=== PATIENT | male | born 1945 | race Caucasian/White ===

== ENCOUNTER → 2019-08-13 10:52 | Outpatient (CLI) | payer BC, SELFPAY ==
--- NOTE | ~2019-08-13 | XR_ITS ---
EXAMINATION: XR chest 2V EXAM DATE: 08/13/2019 11:12 INDICATION: Pleurodynia. TECHNIQUE: Frontal and lateral projections of the chest obtained and reviewed. Comparison is made to prior examination from 11/26/2018. FINDINGS: There is been interval insertion of CT injectable right-sided portacatheter overlying expe cted position. Otherwise, no interval change. Some linear basilar scarring. No confluent consolidatio n, pneumothorax or pleural effusion suspected. Cardiomediastinal silhouette is normal. Patient has di ffuse idiopathic skeletal hyperostosis (DISH). IMPRESSION: No acute cardiopulmonary findings. Reviewed, dictated and finalized at location B. [facility]
== END ==
PROVIDERS: PCP Nurse Practitioner; Visit Provider Nurse Practitioner
DX: R07.81 Pleurodynia (principal)
CPT/HCPCS: 71046

== ENCOUNTER 2019-12-31 14:41 | Emergency (ER) | payer BC, SELFPAY | END 2019-12-31 14:52 | disposition left against medical advice (07) | LOC: EXPGLEN 14:45 | PROVIDERS: Emergency Provider Nurse Practitioner | DX: Z53.21 Procedure and treatment not carried out due to patient leaving prior to being seen by health care provider (principal) | CPT/HCPCS: 99199 ==

== ENCOUNTER → 2020-12-07 11:14 | Outpatient (CLI) | payer BC, SELFPAY ==
--- NOTE | ~2020-12-07 | XR_ITS ---
XR chest 2V 12/07/2020 13:16 Indication: Cough Procedure: 2 view chest Comparison: Comparison to multiple prior studies sequentially, with oldest reviewed study dated 01/2019. Findings: Portacatheter tip in the SVC. Heart size normal. Bibasilar atelectasis. No focal pneumonia, edema or effusion. No pneumothorax. There is diffuse idiopathic skeletal hyperostosis (DISH) of the thoracic spine. Impression: 1: Bibasilar atelectasis. Reviewed, dictated and finalized at location B. Impression: 1: Bibasilar atelectasis.
== END ==
PROVIDERS: Visit Provider Nurse Practitioner Family
DX: R05 Cough (principal); R91.8 Other nonspecific abnormal finding of lung field
CPT/HCPCS: 71046

== ENCOUNTER 2021-01-28 09:10 | Emergency (ER) | payer MEDICARE, SELFPAY ==
[2021-01-28] VITALS (14 sets, daily range): BP systolic 128–145; BP diastolic 73–85; PULSE 73–82; RESP 14–21; TEMP 36.4; O2SAT 98–99
--- NOTE | ~2021-01-28 | CT_ITS ---
EXAMINATION: CT cervical spine wo con DATE: 01/28/2021 09:43 INDICATION: Head injury. Multiple myeloma. TECHNIQUE: Computed tomography (CT) of the cervical spine was performed without intravenous contrast. Automated exposure control and iterative reconstruction technique were employed. The dose-length pro duct was 265.02 mGy-cm. COMPARISON: None FINDINGS: There is a permeative lytic lesion involving the clivus. There is a lytic lesion involving right C7 transverse process. There is a nonaggressive lytic lesion involving C2 with sclerotic margin , likely a hemangioma. There is 5 degrees levocurvature of cervical spine. Vertebral body heights are normal. There is mildly decreased disc height from C3-C4 through C6-C7. The following disc levels ar e specifically discussed: C2-C3: There is mild bilateral uncovertebral joint osteoarthritis. There is severe bilateral facet lana int osteoarthritis. There is mild right neural foraminal stenosis. There is no central canal stenosis . C3-C4: There is moderate right and mild left uncovertebral joint osteoarthritis. There is mild right and severe left facet joint osteoarthritis. There is mild bilateral neural foraminal stenosis. There is no central canal stenosis. C4-C5: There is mild bilateral uncovertebral joint osteoarthritis. There is moderate right and severe left facet joint osteoarthritis. There is mild bilateral neural foraminal stenosis. There is mild ce ntral canal stenosis. C5-C6: There is severe bilateral uncovertebral joint osteoarthritis. There is moderate right and mild left facet joint osteoarthritis. There is moderate right and mild left neural foraminal stenosis. Th ere is mild central canal stenosis. C6-C7: There is mild right and severe left uncovertebral joint osteoarthritis. There is moderate bila teral facet joint osteoarthritis. There is mild bilateral neural foraminal stenosis. There is mild ce ntral canal stenosis. C7-T1: There is no uncovertebral joint osteoarthritis. There is severe bilateral facet joint osteoart hritis. There is no neural foraminal stenosis. There is no central canal stenosis. IMPRESSION: 1. No fracture. 2. Lytic lesions involving the clivus and right C7 transverse process, consistent with multiple myelo ma. 3. Moderate cervical spondylosis. Reviewed, dictated and finalized at location A. IMPRESSION: 1. No fracture. 2. Lytic lesions involving the clivus and right C7 transverse process, consiste nt with multiple myeloma. 3. Moderate cervical spondylosis.
--- NOTE | ~2021-01-28 | CT_ITS ---
EXAMINATION: CT brain wo con DATE: 01/28/2021 09:43 INDICATION: Head injury. TECHNIQUE: Computed tomography (CT) of the head was performed without intravenous contrast. The mA wa s adjusted according to patient size. Iterative reconstruction technique was employed. The dose-lengt h product was 605.33 mGy-cm. COMPARISON: Head CT 06/11/2017 FINDINGS: There are scattered areas of low attenuation in the cerebral white matter, which is within normal limits for the patient's age. There is no intracranial hemorrhage or acute infarction. The jaquelin tricles are normal in size. There is a left-sided scalp hematoma. There is a permeative lytic lesion of the left parietal skull with hyperdense material at the site of the lytic lesion that extends 2 mm deep to the residual bone. There is hematoma in the left scalp overlying the lytic lesion. There is a permeative lytic lesion in the clivus. There is mucosal thickening in the paranasal sinuses. There is a small right mastoid effusion. IMPRESSION: 1. Lytic lesions involving the left parietal skull and middle skull base, consistent with metastatic disease versus multiple myeloma. Hyperdense material at the site of the left skull lytic lesion may b e some combination of tumor and hematoma. I called this result to Dr. Serrano. 2. Left-sided scalp hematoma. Reviewed, dictated and finalized at location A. IMPRESSION: 1. Lytic lesions involving the left parietal skull and middle skull base, consi stent with metastatic disease versus multiple myeloma. Hyperdense material at t he site of the left skull lytic lesion may be some combination of tumor and hem atoma. I called this result to Dr. Serrano. 2. Left-sided scalp hematoma.
--- NOTE | ~2021-01-28 | XR_ITS ---
EXAMINATION: XR chest 2V DATE: 01/28/2021 10:18 INDICATION: Head injury. TECHNIQUE: Frontal and lateral views of the chest were obtained. COMPARISON: Chest 2 views 12/07/2020 FINDINGS: The chest demonstrates clear lungs without pneumonia, pleural effusion, or pneumothorax. Th e heart size is normal. There is a right internal jugular port with tip in superior vena cava. IMPRESSION: 1. No acute cardiopulmonary disease. Reviewed, dictated and finalized at location A.
--- NOTE | 2021-01-28 10:06 | ECG_ITS ---
Measurements Intervals [place] Rate: 77 P: 75 ME: 177 QRS: 37 QRSD: 106 T: 82 QT: 386 QTc: 437 Interpretive Statements SINUS RHYTHM BASELINE ARTIFACT- V1, V3-V6 NORMAL ECG Electronically Signed On 01-28-2021 13:49:11 CDT by Dany Guerrero D.O.
[2021-01-28] MEDS: SODIUM CHLORIDE 0.9% IV 1,000 ML 999 ML IV CONT (10:24)
--- NOTE | 2021-01-28 10:38 | ED.FALL ---
HPI - Fall General Chief Complaint: Fall Stated Complaint: fall Time Seen by Provider: 01/28/21 09:53 History of Present Illness HPI Narrative: Patient presents after a fall today. Family not witnessed fall but thinks he was attempting to stand up and lost his balance. Patient did strike his head there is no loss of consciousness. Family noted a laceration in the brought him in for evaluation. They report a recent admission to [facility] for generalized weakness and confusion. Reports he has been doing well since that time. Patient denies any chest pain, shortness of breath, lightheadedness prior to falling down. reports mild headache around laceration patient denies any focal numbness or weakness. Related Data Home Medications Medication Instructions Recorded Confirmed bupropion HCl 300 mg 24 hr tablet, 300 mg PO QAM 07/14/19 12/07/20 extended release famotidine 40 mg tablet 40 mg PO DAILY 07/14/19 12/07/20 insulin detemir U-100 100 unit/mL 100 unit SUB-Q DAILY 07/14/19 12/07/20 (3 mL) subcutaneous pen lancets 33 gauge #100 each 07/14/19 12/07/20 pen needle, diabetic 31 gauge x #30 each 07/14/19 12/07/20 3/16 amlodipine 10 mg tablet 10 mg PO DAILY 08/10/20 12/07/20 atorvastatin 20 mg tablet 20 mg PO DAILY 08/10/20 12/07/20 carvedilol 6.25 mg tablet 6.25 mg PO Q12H 08/10/20 12/07/20 cholestyramine (with sugar) 4 gram PO BID g 08/10/20 12/07/20 oral powder fluoride (sodium) 1.1 % dental 1 applic DENTAL DAILY 08/10/20 12/07/20 paste hydralazine 25 mg tablet 25 mg PO TID 08/10/20 12/07/20 lisinopril 20 mg tablet 20 mg PO BID 08/10/20 12/07/20 loperamide 2 mg capsule 2 mg PO Q6H PRN 08/10/20 12/07/20 mesalamine 500 mg 1,000 mg PO TID cap 08/10/20 12/07/20 capsule,controlled release ondansetron 8 mg disintegrating 8 mg PO Q8H 08/10/20 12/07/20 tablet oxycodone 10 mg tablet 10 mg PO Q4H PRN 08/10/20 12/07/20 polyethylene glycol 3350 17 17 g PO DAILY 08/10/20 12/07/20 gram/dose oral powder prochlorperazine maleate 10 mg 10 mg PO Q6H PRN 08/10/20 12/07/20 tablet sertraline 100 mg tablet 100 mg PO DAILY 08/10/20 12/07/20 spironolactone 25 mg tablet 25 mg PO DAILY 08/10/20 12/07/20 tramadol 50 mg tablet 50 mg PO Q6H PRN 08/10/20 12/07/20 carbidopa 25 mg-levodopa 100 mg 2 tablet PO TID tablet 09/21/20 12/07/20 tablet Allergies Allergy/AdvReac Type Severity Reaction Status Date / Time No Known Allergies Allergy Verified 12/07/20 09:35 Review of Systems Review of Systems: CONSTITUTIONAL: Denies fever, chills, or sweats. EYES: Denies visual changes, redness, or discharge. ENT: Denies rhinorrhea, congestion, sore throat, or otalgia. CARDIOVASCULAR: Denies chest pain, palpitations, or edema. RESPIRATORY: Denies cough or dyspnea. GASTROINTESTINAL: Denies abdominal pain, nausea, vomiting, or diarrhea. GENITOURINARY: Denies dysuria or hematuria. SKIN: Denies rash or itching. MUSCULOSKELETAL: Denies back pain, joint pain, or myalgia. NEUROLOGIC: Denies headache, numbness, dizziness, or weakness. PSYCHIATRIC: Denies anxiety or depression. All systems reviewed & are unremarkable except as noted in HPI and below PMFSH Past Medical History Medical History Anxiety BPH (benign prostatic hyperplasia) CAD (coronary artery disease) Chronic back pain Chronic diarrhea Crohn disease Depression with anxiety Diabetes mellitus type 2 in obese Essential (primary) hypertension Hx MRSA infection Hyperlipidemia Hypotension Multiple myeloma Parkinsons disease Paroxysmal A-fib due to hyperglycemia Peripheral neuropathy Type 2 diabetes mellitus without complications Vitamin D deficiency Surgical History Surgical History History of coronary angioplasty History of resection of terminal ileum 1964 - due to crohn's History of tonsillectomy and adenoidectomy 2000his Family History Family History (
[2021-01-28] MEDS: TETANUS,DIPHTHERIA,AC PERTUSSIS ADULT (0.5 ML) BOOSTRIX IM (11:21)
[2021-01-28 11:40] LABS: Basophils Percent Auto 0.6 % (0.2-1.2); Hematocrit 28.8 % (42.0-52.0); Hemoglobin 9.3 g/dL (14.0-18.0); Immature Granulocyte Absolute 0.11 K/mm3 (0.00-0.031); Immature Granulocyte Percent A 6.6 % (0-0.5); Lymphocytes Absolute Auto 0.19 K/mm3 (0.9-3.2); Lymphocytes Percent Auto 11.4 % (18.3-44.2); Mean Corpuscular HGB Conc 32.3 g/dl (32-36); Mean Corpuscular Hemoglobin 30.1 pg (26-34); Mean Corpuscular Volume 93.2 fl (80-100); Mean Platelet Volume 9.7 fl (7.4-10.4); Monocytes Absolute Auto 0.5 K/mm3 (0.1-0.6); Monocytes Percent Auto 29.5 % (2.6-8.5); Neutrophils Absolute Auto 0.9 K/mm3 (1.3-6.7); Neutrophils Percent Auto 51.9 % (45.5-73.1); Platelet Count Result 105 k/mm3 (150-375); Red Blood Count 3.09 M/mm3 (4.6-6.20); Red Cell Distribution Width 14.5 % (11.5-14.5)
[2021-01-28] MEDS: ACETAMINOPHEN 325 MG TABLET 650 MG PO (11:51)
[2021-01-28 11:59] LABS: Lactic Acid Reflex 1.8 mmol/L (0.7-2.1)
[2021-01-28 12:00] LABS: Alanine Aminotransferase 23 U/L (4-50); Albumin Level 2.9 g/dL (3.5-5.1); Alkaline Phosphatase 90 U/L (38-126); Anion Gap 6 mmol/L (8-16); Aspartate Amino Transferase 36 U/L (17-59); Bilirubin,Total 0.6 mg/dL (0.2-1.3); Blood Urea Nitrogen 31 mg/dL (9-20); Calcium 8.5 mg/dL (8.4-10.2); Carbon Dioxide 23 mmol/L (22-30); Chloride 104 mmol/L (98-107); Estimated CRCL calculation 98 ml/min; Estimated Glomerular Filt Rate > 60; Glucose 134 mg/dL (65-110); Potassium 3.9 mmol/L (3.4-5.0); Sodium 133 mmol/L (137-145)
[2021-01-28 12:10] LABS: White Blood Count 1.7 K/mm3 (4.5-10.0)
[2021-01-28 12:17] LABS: Add Urine Microscopic? YES; Appearance Urine Clear (Clear); Bilirubin Urine Negative (Negative); Blood Urine Negative (Negative); Color Urine Yellow (Yellow); Glucose Urine UA Negative (Negative); Ketones Urine Negative (Negative); Leukocyte Esterase Ur Negative LEU/UL (Negative); Mucus Urine Rare /lpf; Nitrate Urine Negative (Negative); Protein Urine 1+ mg/dL (Negative); RBC Urine 0-2 /hpf (0-2); Specific Grav Ur 1.017 (1.001-1.035); Squamous Epithelial Cell Urine Rare /hpf (Few); WBC Urine 0-3 /hpf
--- NOTE | 2021-01-28 12:58 | PC.NURSE ---
Dr. Oliveira at bedside for laceration repair.
== END 2021-01-28 13:25 | disposition home or self-care (01) ==
PROVIDERS: Emergency Provider Emergency Medicine; PCP Family Medicine
DX: S01.01XA Laceration without foreign body of scalp, initial encounter (principal); D72.819 Decreased white blood cell count, unspecified; S09.90XA Unspecified injury of head, initial encounter; E78.5 Hyperlipidemia, unspecified; I95.9 Hypotension, unspecified; I48.0 Paroxysmal atrial fibrillation; E11.42 Type 2 diabetes mellitus with diabetic polyneuropathy; Z23 Encounter for immunization; W01.198A Fall on same level from slipping, tripping and stumbling with subsequent striking against other object, initial encounter; Z79.899 Other long term (current) drug therapy; Z87.891 Personal history of nicotine dependence
CPT/HCPCS: 12011; 36415; 51701; 70450; 71046; 72125; 80053; 81001; 83605; 85025; 90471; 90715; 93005; 96360; 99284; A9270; J7030